=== PATIENT | female | born 1965 | race Caucasian/White ===

== ENCOUNTER 2019-01-24 14:31 | Observation (INO) ==
--- NOTE | 2019-01-24 15:01 | Emergency Department Note ---
Disposition Clinical Impression: History of coronary artery disease Anemia Qualifiers: Anemia type: unspecified type Qualified Code(s): D64.9 - Anemia, unspecified Dyspnea Qualifiers: Dyspnea type: unspecified Qualified Code(s): R06.00 - Dyspnea, unspecified IUD complication Qualifiers: Device complication type: unspecified Encounter type: initial encounter Qualified Code(s): T83.9XXA - Unspecified complication of genitourinary prosthetic device, implant and graft, initial encounter Chest pain Qualifiers: Chest pain type: unspecified Qualified Code(s): R07.9 - Chest pain, unspecified Disposition: Admitted As Inpatient Condition: Fair Referrals: Sumit Saldana MD [Primary Care Provider] - Forms: ED Satisfaction Letter Time of Disposition: 16:15 General Adult HPI - General Chief complaint: ED Shortness of Breath/Dyspnea Stated complaint: JEAN PIERRE Retaining Fluids Time Seen by Provider: 01/24/19 14:46 Source: patient Mode of arrival: ambulatory Limitations: no limitations Nursing Notes Reviewed: Yes Vital Signs Reviewed: Yes - History of Present Illness HPI Narrative: 53-year-old female with a history of CAD with 4 stents presents for evaluation of dyspnea and retaining fluid. Patient states that she been short of breath for the past 2 weeks. Notes dyspnea at rest but mostly with exertion. Also noted some intermittent chest pain on the left side. Denies any nausea or vomiting. Patient's noted some abdominal distention with retaining of her fluids. Patient states she has gained approximately 10 pounds in one week. Patient is continuing produce urine. No history of liver disease. Patient denies any fevers or cough. Patient denies a formal diagnosis of heart failure. Pain Scale: 5 - Related Data Home Medications Medication Instructions Recorded Confirmed Aspirin Enteric Coated [Aspirin EC] 81 mg PO DAILY 08/07/15 09/17/15 Atorvastatin Calcium [Lipitor] 80 mg PO DAILY 08/07/15 09/17/15 Carvedilol [Coreg] 6.25 mg PO BID 08/07/15 09/17/15 Clopidogrel Bisulfate [Plavix] 75 mg PO DAILY 08/07/15 09/17/15 Sertraline [Zoloft] 50 mg PO DAILY 08/07/15 09/17/15 Spironolactone [Aldactone] 12.5 mg PO DAILY 08/07/15 09/17/15 Famotidine [Pepcid] 40 mg PO DAILY 09/17/15 09/17/15 Ativan 08/27/17 HydrOXYzine 08/27/17 Nitroglycerin 08/27/17 Protonix 08/27/17 Protonix 08/27/17 TraZODone 08/27/17 08/27/17 Previous Rx's Medication Instructions Recorded Clindamycin HCl [Cleocin HCl] 300 mg PO TID 7 Days cap 05/17/16 Naproxen [Naprosyn] 500 mg PO BID #20 tablet 10/20/16 Tramadol HCl [Ultram] 1 - 2 tab PO TID PRN 2 Days #6 tab 01/07/18 Bacitracin OINT [Ak-Tracin] 30 gm TP TID #1 tube 04/20/18 Allergies Allergy/AdvReac Type Severity Reaction Status Date / Time cephalexin [From Keflex] Allergy Hives Verified 01/07/18 18:33 lisinopril Allergy Hives Verified 01/07/18 18:33 Penicillins [PCN] Allergy Rash Verified 01/07/18 18:33 steroids Allergy Rash Uncoded 08/27/17 11:58 All systems ED: reviewed and negative except as stated. Constitutional: Denies: fever Cardiovascular: Reports: chest pain Respiratory: Reports: dyspnea Gastrointestinal: Reports: abdominal pain. Denies: nausea, vomiting Past Medical History - Past Medical History Source: patient Medical history: Reports: coronary artery disease, migraine, myocardial infarction, other Surgical history: Reports: angioplasty/stent (x4 stents in 2014; patient of Dr. Jolly), orthopedic, other (Right carpal tunnel syndrome) Psychiatric history: Reports: anxiety, depression, panic disorder RAILWAY TRACK PLANT OPERATOR history: Reports: no RAILWAY TRACK PLANT OPERATOR history, bilateral tubal ligation - Social History Smoking Status: Never smoker Smokeless Tobacco Status: No Alcohol use: Reports: none Drug use: Reports: none Physical Exam - General Limitations: no limitations General appearance: alert, in no apparent distress - Head Head exam: atraumatic, normocephalic, normal inspection - Eye Eye exam: Present: normal appearance. Absent: scleral icterus - ENT ENT exam: normal exam - Neck Neck exam: Present: normal inspection - Chest Chest inspection: Present: normal inspection, symmetric chest wall rise - Respiratory Respiratory exam: Present: normal lung sounds bilaterally. Absent: respiratory distress - Cardiovascular Cardiovascular exam: Present: regular rate, normal rhythm. Absent: normal heart sounds - Abdominal Exam Abdominal exam: Present: soft, tenderness, distention. Absent: guarding, rebound - Extremities Exam Extremities exam: Present: normal inspection. Absent: pedal edema - Back Exam Back exam: Present: normal inspection - Neurological Exam Neurological exam: Present: alert, oriented X3, CN II-XII intact - Skin Skin exam: Present: warm, dry, intact, normal color Course - Reevaluation(s) Reevaluation #1: Discussed the case with SUPERVISOR BLOOD who is aware of the patient's IUD placement. Time: 16:02 Reevaluation #2: Patient's repeat abdominal exam is unremarkable. Patient was updated on ED course anticipated plan of care in the hospital. Patient appears be resting comfortably. Time: 16:15 Vital Signs Temperature 97.5 F L 01/24/19 14:40 Pulse Rate 74 01/24/19 14:40 Respiratory Rate 18 01/24/19 14:40 Blood Pressure 112/82 01/24/19 14:40 O2 Sat by Pulse Oximetry 98 01/24/19 14:40 Temperature 97.5 F L 01/24/19 14:40 Pulse Rate 74 01/24/19 14:40 Respiratory Rate 18 01/24/19 14:40 Blood Pressure 112/82 01/24/19 14:40 O2 Sat by Pulse Oximetry 98 01/24/19 14:40 Oxygen Delivery Oxygen Delivery Room Air Medical Decision Making - MDM Narrative Medical decision making narrative: This documentation is done with the assistance of Dragon dictation. Despite efforts made to ensure accuracy, there may be inaccuracies in senior ruby developer or spelling and typographical errors. I examined this patient and my medical decision-making was reviewed with the Rick puckett Physician. I agree with the documented findings, disposition and treatment plan as described except to the extent set forth below. Patient seen and evaluated today by Dr. Saravia and myself, I agree with his evaluation and management plan, I supervised the care the patient's stay. Patient presents today with some dyspnea nausea especially with exertion she says she has been retaining fluid for about a week. She denies any chest pain at this time she looks comfortable. We will workup on her CT her abdomen and reassess. She is in agreement with this plan. Chest X-Ray 01/24/19 14:56 IMPRESSION: No active cardiopulmonary disease D/ / Dawood Hernández MD / Dawood Hernándze MD Interpreting Provider: Dawood Hernández MD Chest X-Ray 01/24/19 14:56 IMPRESSION: No active cardiopulmonary disease D/ / Dawood Hernández MD / Dawood Hernández MD Interpreting Provider: Dawood Hernández MD Abdomen/Pelvis CT 01/24/19 14:57 IMPRESSION: 1. No acute process demonstrated 2. 1 limb of an IUD has penetrated the serosal surface of the uterus D/ / Dawood Hernández MD / Dawood Hernández MD Interpreting Provider: Dawood Hernández MD 1556 hrs.: Going to speak with RAILWAY TRACK PLANT OPERATOR about the results of the CT. Patient presented for concerns of dyspnea. Patient does have known coronary disease but no formal diagnosis of heart failure. Patient had an EF of 55% last year. On exam the patient does not appear to be fluid overloaded. Patient has been cleaning of chest pain. Patient does have an abnormal CAT scan which showed perforation with IUD. Patient case was discussed with the on-call RAILWAY TRACK PLANT OPERATOR doctor. Patient will be admitted for continued evaluation. Patient has been d escribing some bloody stools however has a negative occult blood on ED evaluation. - Lab Data Lab results reviewed: Yes I reviewed the patient's lab results. Result diagrams: 01/24/19 15:07 01/24/19 15:07 Lab Results 01/24/19 01/24/19 01/24/19 Range/Units 15:07 15:07 15:07 WBC 6.4 (4.3-11.1) K/mcL RBC 4.47 (3.82-4.97) M/mcL Hgb 10.8 L (11.5-15.4) g/dL Hct 35.3 (35.3-44.9) % MCV 79.0 L (83.0-100.0) fL MCH 24.2 L (28.0-33.3) pg MCHC 30.6 L (31.6-35.5) g/dL RDW 16.3 H (11.5-14.5) % Plt Count 277 (140-400) K/mcL MPV 10.8 (9.4-12.4) fL Immature Gran % 0.2 (0-4) % Seg Neutrophils % 65.2 % Lymphocytes % 21.0 % Monocytes % 9.6 % Eosinophils % 3.1 % Basophils % 0.9 % Neutrophils # 4.2 (1.6-8.9) K/mcL Lymphocytes # 1.3 (0.6-4.6) K/mcL Monocytes # 0.6 (0.0-1.3) K/mcL Eosinophils # 0.2 (0.0-0.6) K/mcL Basophils # 0.1 (0.0-0.2) K/mcL PT 11.4 (9.4-12.1) Seconds INR 1.0 Sodium 139 (136-145) mEq/L Potassium 3.6 (3.5-5.1) mEq/L Chloride 105 (98-107) mEq/L Carbon Dioxide 25 (23-29) mEq/L BUN 18 (6-20) mg/dL Creatinine 0.90 (0.60-1.20) mg/dL Est GFR ( Amer) > 60 (> 60) Est GFR (Non-Af Amer) > 60 (> 60) BUN/Creatinine Ratio 20 (6-26) Glucose 117 H (70-105) mg/dL Calculated Osmolality 291 (280-300) Lactic Acid (0.5-2.2) mmol/L Calcium 9.4 (8.6-10.3) mg/dL Total Bilirubin 0.4 (0.3-1.0) mg/dL Direct Bilirubin 0.1 (0.0-0.2) mg/dL Indirect Bilirubin 0.3 (0.0-1.2) mg/dL AST 17 (13-39) Units/L ALT 14 (7-52) Units/L Alkaline Phosphatase 133 H (34-104) Units/L Troponin I < 0.03 (< 0.04) ng/mL B-Natriuretic Peptide (Less than 100) pg/mL Serum Total Protein 6.9 (6.4-8.9) g/dL Albumin 4.1 (3.5-5.7) g/dL Globulin 2.8 (2.4-3.5) g/dL Albumin/Globulin Ratio 1.5 (1.1-2.2) Lipase 57 (11-82) Units/L Stool Occult Bld Scrn (Negative) 01/24/19 01/24/19 01/24/19 Range/Units 15:07 15:07 15:44 WBC (4.3-11.1) K/mcL RBC (3.82-4.97) M/mcL Hgb (11.5-15.4) g/dL Hct (35.3-44.9) % MCV (83.0-100.0) fL MCH (28.0-33.3) pg MCHC (31.6-35.5) g/dL RDW (11.5-14.5) % Plt Count (140-400) K/mcL MPV (9.4-12.4) fL Immature Gran % (0-4) % Seg Neutrophils % % Lymphocytes % % Monocytes % % Eosinophils % % Basophils % % Neutrophils # (1.6-8.9) K/mcL Lymphocytes # (0.6-4.6) K/mcL Monocytes # (0.0-1.3) K/mcL Eosinophils # (0.0-0.6) K/mcL Basophils # (0.0-0.2) K/mcL PT (9.4-12.1) Seconds INR Sodium (136-145) mEq/L Potassium (3.5-5.1) mEq/L Chloride (98-107) mEq/L Carbon Dioxide (23-29) mEq/L BUN (6-20) mg/dL Creatinine (0.60-1.20) mg/dL Est GFR ( Amer) (> 60) Est GFR (Non-Af Amer) (> 60) BUN/Creatinine Ratio (6-26) Glucose (70-105) mg/dL Calculated Osmolality (280-300) Lactic Acid 1.5 (0.5-2.2) mmol/L Calcium (8.6-10.3) mg/dL Total Bilirubin (0.3-1.0) mg/dL Direct Bilirubin (0.0-0.2) mg/dL Indirect Bilirubin (0.0-1.2) mg/dL AST (13-39) Units/L ALT (7-52) Units/L Alkaline Phosphatase (34-104) Units/L Troponin I (< 0.04) ng/mL B-Natriuretic Peptide 57 (Less than 100) pg/mL Serum Total Protein (6.4-8.9) g/dL Albumin (3.5-5.7) g/dL Globulin (2.4-3.5) g/dL Albumin/Globulin Ratio (1.1-2.2) Lipase (11-82) Units/L Stool Occult Bld Scrn Negative (Negative) - Radiology Data Radiology results reviewed: Yes I reviewed the patient's radiology results. Chest X-Ray 01/24/19 14:56 IMPRESSION: No active cardiopulmonary disease D/ / Dawood Hernández MD / Dawood Hernández MD Interpreting Provider: Dawood Hernández MD Abdomen/Pelvis CT 01/24/19 14:57 IMPRESSION: 1. No acute process demonstrated 2. 1 limb of an IUD has penetrated the serosal surface of the uterus D/ / Dawood Hernández MD / Dawood Hernández MD Interpreting Provider: Dawood Hernández MD - EKG Data EKG #1 EKG attestation: Yes I reviewed and interpreted this EKG. EKG shows normal: sinus rhythm Rate: normal Rhythm: NSR [place]/QRS: normal Q waves: v1 Interpretation: no acute changes, nonspecific ST-T wave changes S.B.A.R. - S.B.A.R. Situation: Demographics Background: Presenting Complaint Assessment: Vital Signs, Course and respsone to treatment, Patient/Family Expectation Recommendation: Barrier(s) to disposition, Recommendation based on pending studies, treatments, or consults S.B.A.RChace Report Given to: Maico Toscano Repor Time: 15:59
[2019-01-24 15:23] LABS: Basophils # 0.1 K/mcL (0.0-0.2); Basophils % 0.9 %; Eosinophils # 0.2 K/mcL (0.0-0.6); Eosinophils % 3.1 %; Hematocrit 35.3 % (35.3-44.9); Hemoglobin 10.8 g/dL (11.5-15.4); Immature Granulocytes % 0.2 % (0-4); Lymphocytes # 1.3 K/mcL (0.6-4.6); Mean Corpuscular HGB Conc 30.6 g/dL (31.6-35.5); Mean Corpuscular Hemoglobin 24.2 pg (28.0-33.3); Mean Platelet Volume 10.8 fL (9.4-12.4); Monocytes # 0.6 K/mcL (0.0-1.3); Monocytes % 9.6 %; Neutrophils # 4.2 K/mcL (1.6-8.9); Platelet Count 277 K/mcL (140-400); Red Blood Count 4.47 M/mcL (3.82-4.97); Red Cell Distribution Width 16.3 % (11.5-14.5); Segmented Neutrophils % 65.2 %
[2019-01-24 15:31] LABS: Prothrombin Time 11.4 Seconds (9.4-12.1)
[2019-01-24 15:44] LABS: Alanine Aminotransferase 14 Units/L (7-52); Albumin 4.1 g/dL (3.5-5.7); Albumin/Globulin Ratio 1.5 (1.1-2.2); Alkaline Phosphatase 133 Units/L (34-104); Aspartate Amino Transferase 17 Units/L (13-39); BUN/Creatinine Ratio 20 (6-26); Bilirubin,Direct 0.1 mg/dL (0.0-0.2); Bilirubin,Indirect 0.3 mg/dL (0.0-1.2); Bilirubin,Total 0.4 mg/dL (0.3-1.0); Blood Urea Nitrogen 18 mg/dL (6-20); Calcium 9.4 mg/dL (8.6-10.3); Carbon Dioxide 25 mEq/L (23-29); Chloride 105 mEq/L (98-107); Globulin 2.8 g/dL (2.4-3.5); Glucose 117 mg/dL (70-105); Lipase 57 Units/L (11-82); Osmolality,Calculated 291 (280-300); Potassium 3.6 mEq/L (3.5-5.1); Sodium 139 mEq/L (136-145); Total Protein 6.9 g/dL (6.4-8.9); Troponin I < 0.03 ng/mL (< 0.04); eGFR For Non-African Americans > 60 (> 60)
[2019-01-24] MEDS ORDERED: Pantoprazole 40 MG VIAL IVP ONE (16:04)
[2019-01-24] MEDS ORDERED: Naloxone 0.4 MG/ML INJ IVP PRN (17:20)
[2019-01-24] MEDS ORDERED: hydrOXYzine pamoate 25 MG CAPSULE PO PRN (17:22)
[2019-01-24] MEDS ORDERED: Isovue-370 500 ML BOTTLE IVP ONE (17:45)
--- NOTE | 2019-01-24 17:53 | Internal Med History&Physical ---
Date of Encounter: 01/24/19 Time of Encounter: 17:00 Internal Medicine - H&P: HPI Chief complaint: Shortness of breath History of present illness: Ms. Mathew is a 53 year old female with pmh of CAD s/p 4 stents, dyslipidemia presenting with complaints of shortness of breath. Patient says she has noticed gradually progressive worsening shortness of breath for about 2 weeks. She is usually able to exercise but finds herself getting easily winded with walking and light exercise. She has shortness of breath on laying flat and early in the morning. She denies any coughing, fevers, chills or chest pain. She admits to occasional dizziness In the ER, she had a chest xray done showing no acute findings. Troponins and EKG were negative. She is being admitted for further management Past Med Surg Social Fam HX - Past Medical History Medical history: coronary artery disease, migraine, myocardial infarction, other Additional medical history: heart problems, carpel tunnel Psychiatric history: anxiety, depression, panic disorder - Past Surgical History Surgical History: angioplasty/stent (x4 stents in 2013; patient of Dr. Jolly), orthopedic, other (Right carpal tunnel syndrome) Additional surgical history: TUBAL. CARPEL TUNNEL - Social History Smoking Status: Never smoker Smokeless Tobacco Status: No Alcohol use: none Drug use: none - Family History Father Hx Family Cardiac Disorders: Yes Hx Family Respiratory Disorders: Yes Internal Medicine - H&P: Meds Clopidogrel Bisulfate [Plavix] 75 mg PO DAILY 08/07/15 [History] Famotidine [Pepcid] 20 mg PO DAILY 09/17/15 [History] LORazepam [Ativan] 0.25 - 0.5 mg PO BID PRN 08/27/17 [History] Nitroglycerin [Nitrostat] 0.4 mg SL AD PRN 08/27/17 [History] Pantoprazole Sodium [Protonix] 40 mg PO DAILY 08/27/17 [History] Trazodone HCl 25 - 100 mg PO HS PRN 08/27/17 [History] hydrOXYzine HCl [Hydroxyzine HCl] 25 mg PO TID PRN 08/27/17 [History] Aspirin 81 mg PO DAILY 01/24/19 [History] Atorvastatin [Lipitor] 40 mg PO DAILY 01/24/19 [History] Carvedilol 3.125 mg PO BID 01/24/19 [History] Sertraline [Zoloft] 100 mg PO DAILY 01/24/19 [History] Spironolactone [Aldactone] 25 mg PO DAILY 01/24/19 [History] Allergy/AdvReac Type Severity Reaction Status Date / Time cephalexin [From Keflex] Allergy Hives Verified 01/24/19 16:35 isosorbide [From Imdur] Allergy See Verified 01/24/19 16:35 Comments lisinopril Allergy Hives Verified 01/24/19 16:35 Penicillins [PCN] Allergy Hives Verified 01/24/19 16:35 steroids Allergy SWELLING,HI Uncoded 01/24/19 16:35 VES All Systems PM: A 10-system review of systems was performed and is negative for pertinent findings except as documented above in the HPI. - Constitutional Constitutional: no chills, no fever(s), no night sweats - EENT Eyes: no change in vision, no discharge, no pain, no photophobia Ears: no ear discharge, no ear pain, no tinnitus Nose, mouth and throat: no dysphagia, no nasal discharge, no neck pain, no sore throat - Cardiovascular Cardiovascular ROS IM: dyspnea, no chest pain, no diaphoresis, no lightheadedness, no palpitations, no syncope - Respiratory Respiratory: dyspnea, no cough, no wheezing, no excessive phlegm production - Gastrointestinal Gastrointestinal: no abdominal pain, no diarrhea, no hematemesis, no hematochezia, no melena, no nausea, no vomiting - Genitourinary Genitourinary: no change in urinary stream, no dysuria, no flank pain, no hematuria - Musculoskeletal Musculoskeletal ROS IM: no numbness, no tingling - Integumentary Integumentary IM: no rash, no unusual bruising - Neurological Neurological ROS: no confusion, no convulsions, no focal weakness, no numbness, no tingling, no tremor(s) - Hematologic/Lymphatic Hematologic/Lymphatic: no easy bruising - Constitutional Vitals: Temp Pulse Resp BP Pulse Ox 97.5 F L 78 16 112/76 97 01/24/19 14:40 01/24/19 16:55 01/24/19 16:55 01/24/19 16:55 01/24/19 16:55 Exam: NAD - Head Head exam: Present: atraumatic, normocephalic - Eye Eye exam: Present: PERRL, conjuntiva pink, sclera anicteric Pupils: Present: PERRL - Neck Neck exam general surgery: Present: supple, trachea midline. Absent: lymphadenopathy - Respiratory Respiratory exam: Present: CTAB. Absent: accessory muscle use, rales, rhonchi, wheezes - Cardiovascular Cardiovascular exam: Present: RRR, +S1, +S2. Absent: diastolic murmur, gallop, rubs, systolic murmur - GI/Abdominal GI/Abdominal exam: Present: normal bowel sounds, soft, no peritoneal signs. Absent: distended, tenderness - Extremities Exam Extremities exam: Present: warm, radial pulses palpable and symmetrical. Abse nt: calf tenderness, cyanotic, pedal edema - Neurological Exam Neurological exam: Present: CN II-XII intact, oriented X3, no focal deficits. Absent: pronater drift, facial droop, speech deficit - Skin Skin exam: Present: dry, intact Internal Med - H&P Results - Labs CBC & Chem 7: 01/24/19 15:07 01/24/19 15:07 Labs: Short CBC 01/24/19 Range/Units 15:07 WBC 6.4 (4.3-11.1) K/mcL Hgb 10.8 L (11.5-15.4) g/dL Hct 35.3 (35.3-44.9) % Plt Count 277 (140-400) K/mcL Neutrophils # 4.2 (1.6-8.9) K/mcL BMP 01/24/19 15:07 Sodium 139 Potassium 3.6 Chloride 105 Carbon Dioxide 25 BUN 18 Creatinine 0.90 Glucose 117 H Calcium 9.4 Cardiac Enzymes 01/24/19 Range/Units 15:07 Troponin I < 0.03 (< 0.04) ng/mL Liver Function 01/24/19 Range/Units 15:07 Total Bilirubin 0.4 (0.3-1.0) mg/dL Direct Bilirubin 0.1 (0.0-0.2) mg/dL AST 17 (13-39) Units/L ALT 14 (7-52) Units/L Alkaline Phosphatase 133 H (34-104) Units/L Albumin 4.1 (3.5-5.7) g/dL - Impressions ITS Impressions Chest X-Ray 01/24/19 14:56 IMPRESSION: No active cardiopulmonary disease D/ / Dawood Hernández MD / Dawood Hernández MD Interpreting Provider: Dawood Hernández MD Abdomen/Pelvis CT 01/24/19 14:57 IMPRESSION: 1. No acute process demonstrated 2. 1 limb of an IUD has penetrated the serosal surface of the uterus D/ / Dawood Hernández MD / Dawood Hernández MD Interpreting Provider: Daowod Hernández MD - Assessment and Plan (1) Dyspnea Current Visit: Yes Status: Acute Assessment and plan: Pt comes in with shortness of breath of 2 weeks duration. Has CAD s/p stent. Stress negative about 7 months ago Will obtain CTA chest, limited 2d echo. Cardiology consulted and appreciate recs Continue on aspirin and plavix Qualifiers: Dyspnea type: unspecified Qualified Code(s): R06.00 - Dyspnea, unspecified (2) CAD (coronary artery disease) Current Visit: No Status: Chronic Assessment and plan: Continue aspirin and plavix Qualifiers: Coronary Disease-Associated Artery/Lesion type: [place] artery [place] vs. transplanted heart: [place] heart Associated angina: with unspecified angina Qualified Code(s): I25.119 - Atherosclerotic heart disease of [place] coronary artery with unspecified angina pectoris (3) Dyslipidemia Current Visit: Yes Status: Acute Assessment and plan: Continue statin (4) IUD complication Current Visit: Yes Status: Acute Assessment and plan: IUD seen to be penetrating uterus on CT abdomen payroll tax specialist consulted Qualifiers: Device complication type: unspecified Encounter type: initial encounter Qualified Code(s): T83.9XXA - Unspecified complication of genitourinary prosthetic device, implant and graft, initial encounter (5) DVT prophylaxis Current Visit: Yes Status: Acute Assessment and plan: heparin sc - Time Spent With Patient Total time spent is greater than 50% in coordination of care (as documented) at patient's floor/unit and/or counseling patient:
--- NOTE | 2019-01-24 21:31 | Event Note ---
Date of Encounter: 01/24/19 Time of Encounter: 21:[address] Cerrato about canceling ASSISTANT PARALEGAL consult due to incidental finding of IUD misplacement not related to current hospitalization. Patient is a patient of Dr Wilson's and will need to follow up as outpatient in his office. Message sent to office to call patient on Thursday to schedule for outpatient visit.
[2019-01-24] MEDS ORDERED: Perflutren Lipid Microsphere 1.3 ML in 0.9 % Sodium Chloride 8.7 ML IVP ONE (22:34)
[2019-01-25 05:03] LABS: Basophils % 0.7 %; Eosinophils # 0.2 K/mcL (0.0-0.6); Eosinophils % 2.9 %; Hematocrit 35.8 % (35.3-44.9); Hemoglobin 10.9 g/dL (11.5-15.4); Immature Granulocytes % 0.2 % (0-4); Lymphocytes # 1.1 K/mcL (0.6-4.6); Lymphocytes % 19.2 %; Mean Corpuscular HGB Conc 30.4 g/dL (31.6-35.5); Mean Corpuscular Hemoglobin 24.1 pg (28.0-33.3); Mean Platelet Volume 11.1 fL (9.4-12.4); Monocytes # 0.5 K/mcL (0.0-1.3); Neutrophils # 3.9 K/mcL (1.6-8.9); Platelet Count 277 K/mcL (140-400); Red Blood Count 4.53 M/mcL (3.82-4.97); Red Cell Distribution Width 16.4 % (11.5-14.5)
[2019-01-25 05:35] LABS: BUN/Creatinine Ratio 16 (6-26); Blood Urea Nitrogen 17 mg/dL (6-20); Calcium 9.6 mg/dL (8.6-10.3); Carbon Dioxide 24 mEq/L (23-29); Chloride 106 mEq/L (98-107); Glucose 104 mg/dL (70-105); Magnesium 2.1 mg/dL (1.6-2.6); Osmolality,Calculated 296 (280-300); Potassium 3.8 mEq/L (3.5-5.1); Sodium 142 mEq/L (136-145); Troponin I < 0.03 ng/mL (< 0.04); eGFR For Non-African Americans 53 (> 60)
[2019-01-25] MEDS ORDERED: Spironolactone 25 MG TABLET PO SCH (09:00)
[2019-01-25] MEDS ORDERED: Aspirin 81 MG TAB.CHEW PO SCH (09:00)
[2019-01-25] MEDS ORDERED: Famotidine 20 MG TABLET PO SCH (09:00)
[2019-01-25 10:39] VITALS: BP 106/66
--- NOTE | 2019-01-25 10:51 | Cardiology Consult Note ---
Date of Encounter: 01/25/19 Time of Encounter: 10:49 Assessment and Plan (1) Dyspnea Current Visit: Yes Status: Acute CC worsening shortness of breath and fatigue for 2 weeks. CXR and CTA no acute findings. Troponin negative. Denies chest pain or prior anginal equivalent. Prior anginal equivalent was feeling like she had "whiplash". ECG no ischemic changes. Limited TTE 01/24/19: LVEF 55%. Definity echo contrast was used. Normal RV structure and function. Nuclear stress test 06/15/18: Perfusion imaging negative for ischemia or infarct. Gated EF 57%. [facility] 09/17/15: Mild atherosclerotic CAD. Patent LAD stents. describes daytime sleepiness and pt falling asleep easily. Recommend outpt sleep study. HGB 10.9, typically ~12 range. Hemoccult negative. Check TSH. Will discuss with Dr. Garsia to determine if any further inpt cardiac testing is warranted. Qualifiers: Dyspnea type: unspecified Qualified Code(s): R06.00 - Dyspnea, unspecified (2) CAD (coronary artery disease) Current Visit: No Status: Chronic Hx PCI. [facility] 2016 patent stents. Continue ASA, Statin, Plavix, BB. Qualifiers: Coronary Disease-Associated Artery/Lesion type: [place] artery [place] vs. transplanted heart: [place] heart Associated angina: with unspecified angina Qualified Code(s): I25.119 - Atherosclerotic heart disease of [place] coronary artery with unspecified angina pectoris Discussion w patient/family: The assessment and plan as outlined above was discussed with the patient and/or family members who expressed understanding and agreement. All questions were answered. Thank you for involving us in the care of your patient. Please call with any questions. I will discuss all the above with Dr. Garsia and make changes as necessary. History of Present Illness Consult date: 01/25/19 Consult reason: fatigue, dyspnea Chief complaint: fatigue, dyspnea History of present illness: Ms. Mathew is a 53 year old female with PMH of CAD s/p 4 stents, dyslipidemia presenting with complaints of shortness of breath and fatigue. Patient says she has noticed gradually progressive worsening shortness of breath for about 2 weeks. She is usually able to exercise but finds herself getting easily winded with walking and light exercise and gets tired easily. CXR and CTA no acute findings. Troponins negative. Cardiology consulted for further recs. She denies chest pain or prior anginal equivalent. Prior CV testing: Limited TTE 01/24/19: LVEF 55%. Definity echo contrast was used. Normal right ventricular structure and function. Nuclear stress test 06/15/18: Perfusion imaging negative for ischemia or infarct. Gated EF 57%. Dobumatine stress echo 09/12/16: Negative dobutamine stress ECG/echocardiogram for ischemia. [facility] 09/17/15: Mild atherosclerotic coronary artery disease. Patent LAD stents The left ventricle is normal and has normal contractility EF 55% Past Med Surg Social Fam HX - Past Medical History Medical history: coronary artery disease, migraine, myocardial infarction, other Additional medical history: heart problems, carpel tunnel Psychiatric history: anxiety, depression, panic disorder - Past Surgical History Surgical History: angioplasty/stent (x4 stents in 2013; patient of Dr. Jolly), orthopedic, other (Right carpal tunnel syndrome) Additional surgical history: TUBAL. CARPEL TUNNEL - Social History Smoking Status: Never smoker Smokeless Tobacco Status: No Alcohol use: none Drug use: none - Family History Father Hx Family Cardiac Disorders: Yes Hx Family Respiratory Disorders: Yes Medications and Allergies Clopidogrel Bisulfate [Plavix] 75 mg PO DAILY 08/07/15 [History] Famotidine [Pepcid] 20 mg PO DAILY 09/17/15 [History] LORazepam [Ativan] 0.25 - 0.5 mg PO BID PRN 08/27/17 [History] Nitroglycerin [Nitrostat] 0.4 mg SL AD PRN 08/27/17 [History] Pantoprazole Sodium [Protonix] 40 mg PO DAILY 08/27/17 [History] Trazodone HCl 25 - 100 mg PO HS PRN 08/27/17 [History] hydrOXYzine HCl [Hydroxyzine HCl] 25 mg PO TID PRN 08/27/17 [History] Aspirin 81 mg PO DAILY 01/24/19 [History] Atorvastatin [Lipitor] 40 mg PO DAILY 01/24/19 [History] Carvedilol 3.125 mg PO BID 01/24/19 [History] Sertraline [Zoloft] 100 mg PO DAILY 01/24/19 [History] Spironolactone [Aldactone] 25 mg PO DAILY 01/24/19 [History] Allergy/AdvReac Type Severity Reaction Status Date / Time cephalexin [From Keflex] Allergy Hives Verified 01/24/19 16:35 isosorbide [From Imdur] Allergy See Verified 01/24/19 16:35 Comments lisinopril Allergy Hives Verified 01/24/19 16:35 Penicillins [PCN] Allergy Hives Verified 01/24/19 16:35 steroids Allergy SWELLING,[place] Uncoded 01/24/19 16:35 VES All Systems Review: The remainder of the systems were reviewed and are negative - Constitutional Constitutional: daytime sleepiness, fatigue - Cardiovascular Cardiovascular: as per HPI, dyspnea at rest, dyspnea on exertion - Respiratory Respiratory: dyspnea Physical Examination Vital Signs, Last 4 Hours Temp Pulse Resp BP Pulse Ox 01/25/19 10:37 97.8 F 65 16 106/66 93 01/25/19 07:55 97.9 F 70 18 106/70 Vital Signs Temp Pulse Resp BP Pulse Ox 01/25/19 10:37 97.8 F 65 16 106/66 93 01/25/19 07:55 97.9 F 70 18 106/70 01/25/19 04:16 98.0 F 78 16 92/49 94 01/24/19 23:04 97.6 F 65 14 106/68 95 01/24/19 21:32 97.8 F 79 15 90/60 95 01/24/19 20:39 20 108/70 01/24/19 16:55 78 16 112/76 97 01/24/19 14:40 97.5 F L 74 18 112/82 98 Intake and Output 01/24/19 01/25/19 01/25/19 23:59 07:59 15:59 Intake Total 240 / 240 Output Total 400 / 400 Balance 240 / 240 -400 / -400 Intake: Oral 240 / 240 Output: Urine 400 / 400 Other: Meal Dinner Percent of Meal Consumed 95% # Voids 1 Weight 84.141 kg 84.9 kg Patient Weight 01/25/19 23:59 Weight 84.9 kg General: Conversant, No Apparent Distress HEENT: Atraumatic, Normocephaly, Mucus Membranes Moist Neck: No JVD, Normal carotid pulses Cardiac: Reg Rate and Rhythm, Normal S1 and S2, No Murmur Lungs: Normal Breath Sounds, No Wheeze, Rales, Rhonchi Neuro: Alert and responsive, No focal deficits noted Abdomen: Soft, Non-Tender Skin: No rashes noted on visualized skin Musculoskeletal: No Chest Wall Tenderness Extremities: No Clubbing, No Cyanosis, No Edema, Normal Pulses Results 01/25/19 03:48 01/25/19 03:48 Lab Results 01/24/19 01/24/19 01/24/19 15:07 15:07 15:07 WBC 6.4 Hgb 10.8 L Hct 35.3 Plt Count 277 INR 1.0 Sodium 139 Potassium 3.6 Chloride 105 Carbon Dioxide 25 BUN 18 Creatinine 0.90 Glucose 117 H Calcium 9.4 Magnesium Total Bilirubin 0.4 AST 17 ALT 14 Alkaline Phosphatase 133 H Troponin I < 0.03 B-Natriuretic Peptide Lipase 57 01/24/19 01/24/19 01/24/19 15:07 18:07 23:09 WBC Hgb Hct Plt Count INR Sodium Potassium Chloride Carbon Dioxide BUN Creatinine Glucose Calcium Magnesium Total Bilirubin AST ALT Alkaline Phosphatase Troponin I < 0.03 < 0.03 B-Natriuretic Peptide 57 Lipase 01/25/19 01/25/19 03:48 03:48 WBC 5.8 Hgb 10.9 L Hct 35.8 Plt Count 277 INR Sodium 142 Potassium 3.8 Chloride 106 Carbon Dioxide 24 BUN 17 Creatinine 1.08 Glucose 104 Calcium 9.6 Magnesium 2.1 Total Bilirubin AST ALT Alkaline Phosphatase Troponin I < 0.03 B-Natriuretic Peptide Lipase Short CBC 01/25/19 01/24/19 Range/Units 03:48 15:07 WBC 5.8 6.4 (4.3-11.1) K/mcL Hgb 10.9 L 10.8 L (11.5-15.4) g/dL Hct 35.8 35.3 (35.3-44.9) % Plt Count 277 277 (140-400) K/mcL Neutrophils # 3.9 4.2 (1.6-8.9) K/mcL BMP 01/25/19 01/24/19 Range/Units 03:48 15:07 Sodium 142 139 (136-145) mEq/L Potassium 3.8 3.6 (3.5-5.1) mEq/L Chloride 106 105 (98-107) mEq/L Carbon Dioxide 24 25 (23-29) mEq/L BUN 17 18 (6-20) mg/dL Creatinine 1.08 0.90 (0.60-1.20) mg/dL Glucose 104 117 H (70-105) mg/dL Calcium 9.6 9.4 (8.6-10.3) mg/dL Cardiac Enzymes 01/25/19 01/24/19 01/24/19 Range/Units 03:48 23:09 18:07 Troponin I < 0.03 < 0.03 < 0.03 (< 0.04) ng/mL 01/24/19 Range/Units 15:07 Troponin I < 0.03 (< 0.04) ng/mL Liver Function 01/24/19 Range/Units 15:07 Total Bilirubin 0.4 (0.3-1.0) mg/dL Direct Bilirubin 0.1 (0.0-0.2) mg/dL AST 17 (13-39) Units/L ALT 14 (7-52) Units/L Alkaline Phosphatase 133 H (34-104) Units/L Albumin 4.1 (3.5-5.7) g/dL Impressions Chest X-Ray 01/24/19 14:56 IMPRESSION: No active cardiopulmonary disease D/ / Dawood Hernández MD / Dawood Hernández MD Interpreting Provider: Dawood Hernández MD Abdomen/Pelvis CT 01/24/19 14:57 IMPRESSION: 1. No acute process demonstrated 2. 1 limb of an IUD has penetrated the serosal surface of the uterus D/ / Dawood Hernández MD / Dawood Hernández MD Interpreting Provider: Dawood Hernández MD Chest CTA 01/24/19 17:45 IMPRESSION: 1. No acute abnormality. D/ / Jae Maza MD / Jae Maza MD Interpreting Provider: Jae Maza MD Active Medications Aspirin (Aspirin) 81 mg PO DAILY [facility] Stop: 07/27/19 09:01 Last Admin: 01/25/19 09:54 Dose: 81 mg Documented by: Atorvastatin Calcium (Lipitor) 40 mg PO DAILY [facility] Stop: 07/27/19 09:01 Last Admin: 01/25/19 09:54 Dose: 40 mg Documented by: Carvedilol (Coreg) 3.125 mg PO BID [facility] Stop: 07/26/19 21:01 Last Admin: 01/25/19 09:53 Dose: 3.125 mg Documented by: Clopidogrel Bisulfate (Plavix) 75 mg PO DAILY [facility] Stop: 07/27/19 09:01 Last Admin: 01/25/19 09:54 Dose: 75 mg Documented by: Famotidine (Pepcid) 20 mg PO DAILY [facility]; Protocol Stop: 07/27/19 09:01 Last Admin: 01/25/19 09:52 Dose: 20 mg Documented by: Hydroxyzine Pamoate (Hydroxyzine Pamoate) 25 mg PO TID PRN PRN Reason: Anxiety Naloxone HCl (Narcan) 0.4 mg IVP Q2MPRN PRN PRN Reason: SEE COMMENTS Stop: 07/26/19 17:21 Sertraline HCl (Zoloft) 100 mg PO DAILY [facility] Stop: 07/27/19 09:01 Last Admin: 01/25/19 09:53 Dose: 100 mg Documented by: Spironolactone (Aldactone) 25 mg PO DAILY [facility] Stop: 07/27/19 09:01 Last Admin: 01/25/19 09:52 Dose: 25 mg Documented by: - Imaging and Cardiology Stress Test: report reviewed Echo: report reviewed Cardiac cath: report reviewed - EKG Interpretation EKG results cardiology: personally reviewed (SR), other (12 hr tele AVG HR 72, no significant pauses or arrhythmias noted.) Consult Discharge Plan - Plan Referrals: Sumit Saldana MD [Primary Care Provider] - 01/31/19 1:30 pm
--- NOTE | 2019-01-25 14:03 | Discharge Summary ---
- NOTES TO OUTPATIENT PROVIDER Notes to Outpatient Provider: Follow up with PCP in one week. follow up with oenologist Dr. Morley in 1-2 weeks to remove your IUCD. Need out pt sleepu study. Take Lasix 20mg PO Daily as needed for leg edema and shortness of breath Orders not resulted at time of discharge: Pending orders 01/25/19 11:52 TSH [Thyroid Stimulating Hormone] Routine Date of Encounter: 01/25/19 Time of Encounter: 12:40 - Discharge Diagnosis (1) Dyspnea Priority: Primary Status: Acute Qualifiers: Dyspnea type: unspecified Qualified Code(s): R06.00 - Dyspnea, unspecified (2) COPD exacerbation Priority: Secondary Status: Acute (3) CAD (coronary artery disease) Priority: Secondary Status: Chronic Qualifiers: Coronary Disease-Associated Artery/Lesion type: [place] artery [place] vs. transplanted heart: [place] heart Associated angina: with unspecified angina Qualified Code(s): I25.119 - Atherosclerotic heart disease of [place] coronary artery with unspecified angina pectoris (4) IUD complication Priority: Secondary Status: Acute Qualifiers: Device complication type: unspecified Encounter type: initial encounter Qualified Code(s): T83.9XXA - Unspecified complication of genitourinary prosthetic device, implant and graft, initial encounter (5) Dyslipidemia Priority: Secondary Status: Acute (6) DVT prophylaxis Priority: Secondary Status: Acute Hospital course: Ms. Mathew is a 53 year old female with pmh of CAD s/p 4 stents, dyslipidemia presented to ER with complaints of shortness of breath. Patient says she has noticed gradually progressive worsening shortness of breath for about 2 weeks. She is usually able to exercise but finds herself getting easily winded with walking and light exercise. She has shortness of breath on laying flat and early in the morning. In the ER, she had a chest xray done showing no acute findings. Troponins and EKG were negative. She was admitted in the hospital and placed on site monitor. Her serial troponin came back negative. Her echocardiogram showed preserved LVEF and no septal / wall motion abnormalities noticed. Her CTA was negative for PE. Pt was evaluated by clock and watch hands painter who denied any further work up. Recommend out pt sleepy studies. I did ask her to take Lasix as needed along with her Aldactone. Also recommend to use Albuterol INH as needed. She does have mild emphysematous changes on chest x-ray. - Time Spent with Patient Total time spent providing and/or coordinating discharge services: - Discharge Medications Prescriptions: New Furosemide [Lasix] 20 mg PO DAILY PRN #15 tablet PRN Reason: Edema Continued Clopidogrel Bisulfate [Plavix] 75 mg PO DAILY Famotidine [Pepcid] 20 mg PO DAILY Trazodone HCl 25 - 100 mg PO HS PRN PRN Reason: Sleep Pantoprazole Sodium [Protonix] 40 mg PO DAILY Nitroglycerin [Nitrostat] 0.4 mg SL AD PRN PRN Reason: Chest Pain hydrOXYzine HCl [Hydroxyzine HCl] 25 mg PO TID PRN PRN Reason: Anxiety LORazepam [Ativan] 0.25 - 0.5 mg PO BID PRN PRN Reason: Anxiety Aspirin 81 mg PO DAILY Atorvastatin [Lipitor] 40 mg PO DAILY Carvedilol 3.125 mg PO BID Sertraline [Zoloft] 100 mg PO DAILY Spironolactone [Aldactone] 25 mg PO DAILY Home Medications: Clopidogrel Bisulfate [Plavix] 75 mg PO DAILY 08/07/15 [History] Famotidine [Pepcid] 20 mg PO DAILY 09/17/15 [History] LORazepam [Ativan] 0.25 - 0.5 mg PO BID PRN 08/27/17 [History] Nitroglycerin [Nitrostat] 0.4 mg SL AD PRN 08/27/17 [History] Pantoprazole Sodium [Protonix] 40 mg PO DAILY 08/27/17 [History] Trazodone HCl 25 - 100 mg PO HS PRN 08/27/17 [History] hydrOXYzine HCl [Hydroxyzine HCl] 25 mg PO TID PRN 08/27/17 [History] Aspirin 81 mg PO DAILY 01/24/19 [History] Atorvastatin [Lipitor] 40 mg PO DAILY 01/24/19 [History] Carvedilol 3.125 mg PO BID 01/24/19 [History] Sertraline [Zoloft] 100 mg PO DAILY 01/24/19 [History] Spironolactone [Aldactone] 25 mg PO DAILY 01/24/19 [History] Albuterol Sulfate [Albuterol Inhaler] 2 puff IH Q6HR PRN #1 [id number] 01/25/19 [Rx] Furosemide [Lasix] 20 mg PO DAILY PRN #15 tablet 01/25/19 [Rx] Allergies/Adverse Reactions: Allergy/AdvReac Type Severity Reaction Status Date / Time cephalexin [From Keflex] Allergy Hives Verified 01/24/19 16:35 isosorbide [From Imdur] Allergy See Verified 01/24/19 16:35 Comments lisinopril Allergy Hives Verified 01/24/19 16:35 Penicillins [PCN] Allergy Hives Verified 01/24/19 16:35 steroids Allergy SWELLING,[place] Uncoded 01/24/19 16:35 VES Date of admission: 01/24/19 19:25 Primary care physician: Sumit Saldana MD Consults: 01/24/19 17:46 Consult to Cardiology [CONS] Routine Comment: Consulting Provider: Cardiology Kristel Reason for Consult: shortness of breath, cad s/p stent , recent negative stress Call Completed: No - Constitutional Vitals: Temp Pulse Resp BP Pulse Ox 97.8 F 65 16 106/66 93 01/25/19 10:37 01/25/19 10:37 01/25/19 10:37 01/25/19 10:37 01/25/19 10:37 General appearance: Present: cooperative, A&O X 3, no acute distress, answers questions appropriately Exam: Gen: Alert, awake, Oriented to time,place and person Chest: Diminished breath sounds B/L, No wheezing, No crackles, No rales Heart: S1S2+ RRR No murmurs Abd: Soft, NT, BS +, No organomegaly Ext: No edema, pulses are palpable, No calf tenderness Neuro : Benign findings Skin: No rash. - Patient Status Disposition: Home, Self-Care Condition: Good Overall status at discharge: patient is back to baseline - Discharge Instructions Instructions: Dyspnea (GEN) Follow Up With: Arden Garsia MD [Partnered Physician] - (Appt has been requested. Office will call with date and time of appointment. ) Mandeep Wilson MD [Partnered Physician] - (Appt has been requested. Office will call with date and time of appointment. ) Sumit Saldana MD [Primary Care Provider] - 01/31/19 1:30 pm - Diet and Activity Activity: increase activity as tolerated Diet: low salt diet
--- NOTE | 2019-01-25 18:39 | Electrocardiograph Report ---
[place] [id number] Test Date: 2019-01-24 Pat Name: Toya Mathew Department: [id number] Room: 3B41 Gender: F [employer]rier: : 1965 Requested By: Yobani Saravia Order Number: [id number] Reading MD: Capri Matson Measurements Intervals [place] Rate: 67 P: 49 MI: 163 QRS: 33 QRSD: 105 T: 48 QT: 410 QTc: 433 Interpretive Statements Sinus rhythm Electronically Signed On 01-25-2019 18:38:03 EDT by Capri Matson
== END 2019-01-25 14:21 | disposition home or self-care (01) ==
LOC: 3BNU 14:31 → EMEROOARM 14:31 → 3BNU 20:49
PROVIDERS: ADMIT Student in an Organized Health Care Education/Training Program; ATTEND Student in an Organized Health Care Education/Training Program